=== PATIENT | female | born 1995 | race Caucasian/White ===

== ENCOUNTER 2020-03-07 18:54 | Emergency (ER) | payer OTHER, SELFPAY ==
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
[2020-03-07 19:05] VITALS: BP 136/83; PULSE 99; RESP 17; TEMP 36.5; O2SAT 100
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
[2020-03-07 21:26] VITALS: BP 140/93; PULSE 77; RESP 18; O2SAT 99
== END 2020-03-07 21:28 | disposition home or self-care (01) ==
PROVIDERS: Emergency Provider Emergency Medicine; PCP Family Medicine
DX: S16.1XXA Strain of muscle, fascia and tendon at neck level, initial encounter (principal); V43.52XA Car driver injured in collision with other type car in traffic accident, initial encounter
CPT/HCPCS: 72050; 99283

== ENCOUNTER 2020-12-26 15:53 | Emergency (ER) | payer OTHER, SELFPAY ==
[2020-12-26 15:58] VITALS: BP 133/89; PULSE 86; RESP 20; TEMP 36.4; O2SAT 99
--- NOTE | 2020-12-26 16:10 | ED.URI ---
HPI - URI/Sore Throat General Chief Complaint: Upper Respiratory Infection Stated Complaint: sinus issues Time Seen by Provider: 12/26/20 16:00 Source: patient and RN notes reviewed History of Present Illness HPI Narrative: Patient is a 25-year-old female who presents the urgent care with complaints of congestion, pressure behind the eyes, intermittent headaches, and drainage. Patient denies of any sore throat or fever. States that her son was diagnosed with possible RSV but was not swabbed in the office. He was negative for Covid at that time. States that her symptoms of been ongoing for approximately a week and a half and her has also had some intermittent symptoms which is since improved. Patient states that she is 21 weeks . States that she has been taking Benadryl, Tylenol and Zyrtec. Patient states she does suffer from seasonal allergies. Denies of any known contact with Covid. States that she has had the Materna vaccine. No other acute complaints. No acute distress noted. Patient aware of the plan of care. Some parts of this dictation were generated by voice recognition software and may contain typographical and/or grammatical inaccuracies. Related Data Home Medications Medication Instructions Recorded Confirmed No Home Medications 03/07/20 03/07/20 Allergies Allergy/AdvReac Type Severity Reaction Status Date / Time No Known Allergies Allergy Verified 03/07/20 19:08 Review of Systems Review of Systems: CONSTITUTIONAL: Denies fever, chills, or sweats. EYES: Denies visual changes, redness, or discharge. ENT: Reports of sinus pressure, congestion, postnasal drainage CARDIOVASCULAR: Denies chest pain, palpitations, or edema. RESPIRATORY: Reports a mild cough without dyspnea GASTROINTESTINAL: Denies abdominal pain, nausea, vomiting, or diarrhea. GENITOURINARY: Denies dysuria or hematuria. SKIN: Denies rash or itching. MUSCULOSKELETAL: Denies back pain, joint pain, or myalgia. NEUROLOGIC: Denies headache, numbness, or weakness. All other systems reviewed are negative, except as documented in HPI. PMFSH Social History Social History Gender identity (if verbalized by the patient): Female Comments At the time of my signature, I reviewed and agree with the nursing past medical, surgical, social, and family history. There is no relevant family history pertinent to the patient complaint. Exam Narrative: GENERAL: This is a well-nourished, well-developed patient, in no apparent distress. HEAD: normocephalic, atraumatic. Mild frontal sinus tenderness EYES: PERRL. Sclera clear/white. Vision is grossly intact. EARS: External ears normal, auditory canals clear and without drainage, TMs normal without perforation. Hearing grossly intact. NOSE: External nose normal with no obvious nasal discharge, nares without redness, clear rhinorrhea. THROAT: Mucous membranes moist, posterior pharynx clear. Mild postnasal drainage NECK: Neck supple, non-tender without lymphadenopathy CARDIOVASCULAR: Regular rate and rhythm without murmurs, gallops, or rubs. RESPIRATORY: Clear to auscultation. Breath sounds equal bilaterally. No wheezes, rales, or rhonchi. SKIN: warm, intact with no suspicious lesions or rash, good texture and turgor. NEURO: awake, alert, and oriented to person, place and time. There were no obvious focal neurologic abnormalities. EXTREMITIES: No clubbing, cyanosis, or edema. Course Vital Signs Vital signs: Vital Signs Temperature 97.5 F L 12/26/20 15:58 Pulse Rate 86 12/26/20 15:58 Respiratory Rate 20 12/26/20 15:58 Blood Pressure 133/89 12/26/20 15:58 Pulse Oximetry 99 12/26/20 15:58 Temperature 97.5 F L 12/26/20 15:58 Pulse Rate 86 12/26/20 15:58 Respiratory Rate 20 12/26/20 15:58 Blood Pressure 133/89 12/26/20 15:58 Pulse Oximetry 99 12/26/20 15:58 Reviewed MDM - URI/Sore Throat MDM Narrative Medical decision making narrative: Reviewed lab resul
== END 2020-12-26 16:25 | disposition home or self-care (01) ==
PROVIDERS: Emergency Provider Nurse Practitioner Family
DX: J32.9 Chronic sinusitis, unspecified (principal); Z20.822 Contact with and (suspected) exposure to COVID-19
CPT/HCPCS: 87426; 99212; C9803; G0463

== ENCOUNTER 2021-03-13 15:53 | Emergency (ER) | payer OTHER, SELFPAY ==
--- NOTE | ~2021-03-13 | XR_ITS ---
EXAMINATION: XR foot LT min 3V EXAM DATE: 03/13/2021 16:50 INDICATION: PAIN prox 5th metatarsal Lt foot after excessive walking includes; no injury, onset x 2 d ays. . TECHNIQUE: Left foot dorsoplantar, lateral and oblique projections obtained and reviewed. There is n o prior study for comparison. FINDINGS: Left metatarsal bones unremarkable. No periosteal reaction or band of sclerosis to sugges t subacute stress fracture. Follow-up can be obtained if symptoms persist. There are no acute fractures or dislocations identified. There is no subcutaneous gas. The soft tis paul is unremarkable. There are no radiopaque foreign bodies. IMPRESSION: Unremarkable left foot x-ray. Reviewed, dictated and finalized at location A. UNTING ASSISTANT
[2021-03-13 16:04] VITALS: BP 116/72; PULSE 77; RESP 16; TEMP 36.4; O2SAT 100
--- NOTE | 2021-03-13 16:31 | ED.LOWEXIN ---
HPI - Extremity Injury (Lower) General Chief Complaint: Extremity Injury, Lower Stated Complaint: L ANKLE/FOOT PAIN Time Seen by Provider: 03/13/21 16:31 Source: patient, RN notes reviewed and old records reviewed Mode of arrival: ambulatory Limitations: no limitations History of Present Illness HPI Narrative: 26-year-old female presents to the [facility] with left lateral foot pain for the last 2 days. Patient states that she is taken Tylenol, 1 dose. Pain is worse with walking. [place] was wearing a pair of boots not supportive shoes Currently 32 weeks , sees heart rate in [facility], call today and they recommended she come to [facility] and get an x-ray of her foot Related Data Home Medications Medication Instructions Recorded Confirmed No Home Medications 03/07/20 03/07/20 Allergies Allergy/AdvReac Type Severity Reaction Status Date / Time No Known Allergies Allergy Verified 03/07/20 19:08 Review of Systems Review of Systems: All systems reviewed & are unremarkable except as noted in HPI and below Constitutional: Constitutional: Reports no additional constitutional complaints, Denies chills and Denies fever(s) Eyes: Eyes: Reports no additional eye complaints ENT: Reports system reviewed and no additional complaints, except as documented Cardiovascular: Cardiovascular: Reports no additional cardiovascular complaints Respiratory: Respiratory: Reports no additional respiratory complaints Musculoskeletal: Musculoskeletal: Reports as per HPI Comments: Left lateral foot pain Integumentary/Breasts: Skin/Breast: Reports system reviewed and no additional complaints, except as docu Neurologic: Reports system reviewed and no additional complaints, except as documented Psychiatric: Psychiatric: Reports no additional psychiatric complaints Allergic/Immunologic: Allergic/Immunologic: Reports no additional allergic/immunologic complaints [facility] Past Medical History Medical History (Updated 03/13/21 @ 19:46 by Salome Gann) No significant medical problems Surgical History Surgical History (Updated 03/13/21 @ 19:46 by Salome Gann) No significant past surgical history Social History Social History (Updated 03/13/21 @ 19:46 by Salome Gann) Living arrangements: with family Gender identity (if verbalized by the patient): Female Comments At the time of my signature, I reviewed and agree with the nursing past medical, surgical, social, and family history. There is no relevant family history pertinent to the patient complaint. Exam Const: General: healthy appearing, no acute distress and alert Nutritional Appearance: well nourished Orientation/consciousness: patient oriented x3 Limitations: no limitations HENMT: Head: normal to inspection Eyes: Pupils: Equal, round and reactive pupils present Neck: Neck: normal visual inspection, no lymphadenopathy and no meningeal signs Chest: Chest palpation & inspection: normal inspection of the chest Resp: Effort & Inspection: normal respiratory effort Cardio: Rate: regular rate Back/Spine/Pelvis: Back: no CVA tenderness Skin: General skin exam: normal color Rashes: no rashes Wounds: no wounds Neuro: General: patient oriented x3, moves all extremities, no meningeal signs and no focal motor deficits Speech: normal speech Extrem: General: full ROM and capillary refill normal Ankle/foot/toe images: 1. Reports pain when bearing weight. Unable to reproduce on palpation. No signs of infection. No redness, swelling or bruising noted. Psych: Appearance: grossly normal and well kempt Mental Status: mental status grossly normal Affect: normal affect Attitude: cooperative Thought content: Yes Normal thought content present Course Course Emergency Course: Discharge instructions reviewed with patient, as well as provided in writing per nursing staff. The instructions also include spec
== END 2021-03-13 17:11 | disposition home or self-care (01) ==
PROVIDERS: Emergency Provider Nurse Practitioner; PCP Nurse Practitioner Obstetrics & Gynecology
DX: M79.672 Pain in left foot (principal)
CPT/HCPCS: 73630; 99213; G0463

== ENCOUNTER 2022-03-26 09:34 | Emergency (ER) | payer OTHER, SELFPAY ==
--- NOTE | ~2022-03-26 | XR_ITS ---
EXAMINATION: XR chest 2V DATE: 03/26/2022 10:20 INDICATION: Shortness of breath. TECHNIQUE: Frontal and lateral views of the chest were obtained. COMPARISON: None. FINDINGS: There is no pneumonia, pleural effusion, or pneumothorax. The heart size is normal. There a re prominent paracardial fat pads. IMPRESSION: 1. No acute cardiopulmonary disease. Reviewed, dictated and finalized at location A. ER AIDE
--- NOTE | 2022-03-26 09:39 | ECG_ITS ---
Measurements Intervals [place] Rate: 94 P: 46 SD: 128 QRS: 43 QRSD: 92 T: 3 QT: 341 QTc: 428 Interpretive Statements SINUS RHYTHM NONSPECIFIC T-WAVE ABNORMALITY NO PREVIOUS ECG AVAILABLE FOR COMPARISON Electronically Signed On 03-26-2022 16:33:04 COMMUNITY ACTION WORKER by Keshav Li M.D.
[2022-03-26 09:46] VITALS: BP 120/73; PULSE 121; RESP 18; TEMP 36.6; O2SAT 98
[2022-03-26 10:12] LABS: Basophils Absolute Auto 0.1 K/mm3 (0.0-0.1); Basophils Percent Auto 0.5 % (0.2-1.2); Eosinophils Absolute Auto 0.3 K/mm3 (0-0.3); Eosinophils Percent Auto 2.2 % (0-4.4); Hematocrit 37.3 % (37.0-47.0); Hemoglobin 11.9 g/dL (12.0-15.0); Immature Granulocyte Percent A 0.7 % (0-0.5); Lymphocytes Absolute Auto 3.94 K/mm3 (0.9-3.2); Lymphocytes Percent Auto 29.2 % (18.3-44.2); Mean Corpuscular HGB Conc 31.9 g/dl (32-36); Mean Corpuscular Hemoglobin 25.8 pg (26-34); Mean Corpuscular Volume 80.7 fl (80-100); Mean Platelet Volume 9.3 fl (7.4-10.4); Monocytes Percent Auto 7.5 % (2.6-8.5); Neutrophils Absolute Auto 8.1 K/mm3 (1.3-6.7); Neutrophils Percent Auto 59.9 % (45.5-73.1); Platelet Count Result 297 k/mm3 (150-375); Red Blood Count 4.62 M/mm3 (4.2-5.4); White Blood Count 13.5 K/mm3 (4.5-10.0)
[2022-03-26 10:24] LABS: Alanine Aminotransferase 34 U/L (6-35); Albumin Level 4.3 g/dL (3.5-5.1); Alkaline Phosphatase 139 U/L (38-126); Anion Gap 9 mmol/L (8-16); Aspartate Amino Transferase 30 U/L (14-36); Bilirubin,Total 0.2 mg/dL (0.2-1.3); Blood Urea Nitrogen 11 mg/dL (7-17); Calcium 8.8 mg/dL (8.4-10.2); Carbon Dioxide 26 mmol/L (22-30); Chloride 103 mmol/L (98-107); Estimated Glomerular Filt Rate > 60; Glucose 92 mg/dL (65-110); Potassium 3.6 mmol/L (3.4-5.0); Sodium 138 mmol/L (137-145)
[2022-03-26 10:46] LABS: Influenza A QL RT-PCR Negative (Negative); Influenza B QL RT-PCR Negative (Negative); RSV RNA, RT-PCR Negative (Negative); SARS-CoV-2 RNA PCR Negative
[2022-03-26] MEDS: SODIUM CHLORIDE 0.9% IV 1,000 ML 999 ML IV CONT (11:35)
--- NOTE | 2022-03-26 11:36 | ED.SOB ---
HPI - SOB/Dyspnea General Chief Complaint: Shortness of Breath/Dyspnea Stated Complaint: sob Time Seen by Provider: 03/26/22 11:07 Source: patient Mode of arrival: ambulatory Limitations: no limitations History of Present Illness HPI Narrative: This is a 27-year-old female that presents to the emergency department for cold symptoms ongoing over the last week. Reports cough, congestion, sore throat. Reports she had an online doctor's visit and was put on a steroid for possible fluid in her ears. Reports she was feeling better. Today she felt a little bit short of breath which prompted her to be seen in the urgent care. They sent her to the ER to rule out a PE due to exogenous estrogen use. Denies fever, chest pain, or lower extremity edema. Related Data Home Medications Medication Instructions Recorded Confirmed No Home Medications 03/07/20 03/07/20 Allergies Allergy/AdvReac Type Severity Reaction Status Date / Time No Known Allergies Allergy Verified 03/07/20 19:08 Review of Systems Review of Systems: CONSTITUTIONAL: Denies fever EYES: Denies redness, or discharge. ENT: Reports congestion, sore throat, and otalgia. CARDIOVASCULAR: Denies chest pain, or edema. RESPIRATORY: Reports cough and dyspnea. All systems reviewed & are unremarkable except as noted in HPI and below PMFSH Past Medical History Medical History (Updated 03/26/22 @ 12:44 by Olivia Parmar PA-C) No significant medical problems Surgical History Surgical History (Updated 03/13/21 @ 19:46 by Salome Gann APRN) No significant past surgical history Social History Social History (Updated 03/26/22 @ 11:38 by Olivia Parmar PA-C) Smoking status: Never smoker Gender identity (if verbalized by the patient): Female Exam Narrative: GENERAL: Well-appearing, well-nourished, and in no acute distress. HEAD: Normocephalic, atraumatic. EYES: EOMI. ENT: Nares clear, no rhinorrhea or epistaxis. Mucous membranes moist. Oropharynx without tonsillar hypertrophy exudate or other lesions. Bilateral TMs pearly terry non-bulging NECK: Supple. No adenopathy or masses. CHEST: Clear to auscultation. No respiratory distress. No wheezes rales or rhonchi HEART: Regular rate and rhythm. No murmur heard. Normal peripheral pulses. EXTREMITIES: Normal range of motion. No edema. SKIN: Warm, dry, no rash. NEURO: No focal deficits. Alert and oriented x3. PSYCH: Normal mood and affect Course Vital Signs Vital signs: Vital Signs Temperature 98 F 03/26/22 09:46 Pulse Rate 121 H 03/26/22 09:46 Respiratory Rate 18 03/26/22 09:46 Blood Pressure 120/73 03/26/22 09:46 Pulse Oximetry 98 03/26/22 09:46 Oxygen Delivery Room Air 03/26/22 09:46 Temperature 98 F 03/26/22 09:46 Pulse Rate 121 H 03/26/22 09:46 Respiratory Rate 18 03/26/22 09:46 Blood Pressure 120/73 03/26/22 09:46 Pulse Oximetry 98 03/26/22 09:46 Oxygen Delivery Room Air 03/26/22 09:46 MDM - SOB/Dyspnea MDM Narrative Medical decision making narrative: Patient presents the emergency department for cold symptoms ongoing over the last week. Was initially evaluated at urgent care and sent in to rule out PE due to being on control. She is afebrile and nontoxic-appearing. Tachycardic upon arrival, this normalized with IV fluid administration. CBC does show leukocytosis to 13.5, likely due to recent steroid use. Patient is also a little mildly anemic with hemoglobin of 11.9. Metabolic panel without concerning findings. Influenza, RSV, COVID screens are negative. Chest x-ray without acute cardiopulmonary normality. EKG without concerning changes and baseline troponin is negative. Her D-dimer is not elevated. Patient was updated on case findings. She was instructed on continued care of viral infection. She is to follow-up with primary care provider. She was given warnings to return to the ER Lab Data Attestation: I reviewed the patient's lab
[2022-03-26 11:38] LABS: Troponin I < 0.012 ng/mL (0.000-0.034)
[2022-03-26 12:24] LABS: Prothrombin Time 12.8 Seconds (11.1-14.7)
[2022-03-26 12:30] LABS: D Dimer 0.45 ug/mL (<0.48)
[2022-03-26 13:10] VITALS: BP 126/90; PULSE 80; RESP 18
== END 2022-03-26 13:10 | disposition home or self-care (01) ==
PROVIDERS: Emergency Medicine; Emergency Provider Physician Assistant
DX: J06.9 Acute upper respiratory infection, unspecified (principal); Z20.822 Contact with and (suspected) exposure to COVID-19
CPT/HCPCS: 36415; 71046; 80053; 84484; 85025; 85380; 85610; 85730; 87637; 93005; 99284; J7030

== ENCOUNTER 2022-04-20 17:43 | Emergency (ER) | payer OTHER, SELFPAY ==
--- NOTE | 2022-04-20 17:49 | ED.URI ---
HPI - URI/Sore Throat General Chief Complaint: Upper Respiratory Infection Stated Complaint: SORE THROAT Time Seen by Provider: 04/20/22 17:50 Source: patient and RN notes reviewed Mode of arrival: ambulatory Limitations: no limitations History of Present Illness HPI Narrative: 27-year-old female presents with concern for sore throat, painful swallowing, feeling like something is stuck throat. She denies nasal congestion, rhinorrhea, fever. Reports chills and malaise. MD elicited complaint: sore throat Related Data Home Medications Medication Instructions Recorded Confirmed escitalopram oxalate 20 mg tablet 20 mg PO DAILY 04/01/22 04/20/22 Allergies Allergy/AdvReac Type Severity Reaction Status Date / Time No Known Allergies Allergy Verified 04/20/22 17:50 Review of Systems Review of Systems: CONSTITUTIONAL: Reports malaise, chills. Denies sweats, or fever. EYES: Denies visual changes, redness, or discharge. ENT: Denies rhinorrhea, congestion, sinus pain, otalgia. Reports sore throat. CARDIOVASCULAR: Denies chest pain, palpitations, or edema. RESPIRATORY: Denies cough. Denies dyspnea. GASTROINTESTINAL: Denies abdominal pain, nausea, vomiting, diarrhea SKIN: Denies rash or itching. MUSCULOSKELETAL: Denies myalgia. NEUROLOGIC: Denies headache. All systems reviewed & are unremarkable except as noted in HPI and below PMFSH Past Medical History Medical History (Updated 04/20/22 @ 18:05 by Salome Restrepo NP) No significant medical problems Surgical History Surgical History (Updated 03/13/21 @ 19:46 by Salome Gann APRN) No significant past surgical history Social History Social History (Updated 04/01/22 @ 08:27 by Aruy Francis MA) Smoking status: Never smoker Lack of Transportation: No Lack of Food: Never True Current Housing: I Have Housing Concerned About Future Housing: No Difficulty Paying Gas/Electric Bills: No Difficulty Paying for Meds: No Currently Unemployed: No Education: Master's Degree or Higher Difficulty w/ Childcare or Family Care: No Gender identity (if verbalized by the patient): Female Comments At time of signature, agree with nursing past medical, surgical, social and family history. There is no relevant family history pertinent to the presenting complaint Exam Narrative: GENERAL: Well-appearing, well-nourished, and in no acute distress. HEAD: Normocephalic EYES: PERRLA, conjunctivae clear ENT: Nares clear. Mucous membranes moist. TM pearly terry with dull light reflex bilaterally; no tragal tenderness. Oropharynx erythematous without lesions. Right-sided Tonsil enlarged with exudate, no drooling, no hoarseness, no trismus, uvula midline. NECK: Supple. No lymphadenopathy CHEST: Clear to auscultation, breath sounds equal. No wheezing, rhonchi, rales, or stridor. No respiratory distress, speaks in full sentences. HEART: Regular rate and rhythm. No murmur heard. SKIN: Warm, dry, no rash. NEURO: Alert and oriented x3. PSYCH: Normal mood and affect Course Course Emergency Course: Discussed inability to do rapid strep test due to lack of testing supplies, offered throat culture versus treating for tonsillitis, patient would prefer not to swab for throat culture. Patient is aware of diagnosis, understands and agrees to treatment plan. Anticipatory guidance given. Patient agrees to follow-up as directed and is aware of reasons to seek care at the emergency department. Portions of this record may have been created with voice recognition software Level of Care: Express Care Visit Vital Signs Vital signs: Reviewed. MDM - URI/Sore Throat MDM Narrative Medical decision making narrative: Differential diagnosis considered: Haas virus, strep pharyngitis, allergic rhinitis, upper respiratory tract infection, sinusitis, rhinosinusitis, nasopharyngitis. viral pharyngitis, otitis media, otitis externa, pneumonia, bronchitis, viral cough syndrome, viral sy
[2022-04-20 17:51] VITALS: BP 121/77; PULSE 103; RESP 16; TEMP 37; O2SAT 100
[2022-04-20 18:02] VITALS: BP 121/77; PULSE 103; RESP 16; TEMP 37; O2SAT 100
== END 2022-04-20 18:07 | disposition home or self-care (01) ==
PROVIDERS: Emergency Provider Nurse Practitioner; PCP Emergency Medicine
DX: J03.90 Acute tonsillitis, unspecified (principal)
CPT/HCPCS: 99213; G0463

== ENCOUNTER 2022-05-13 09:32 | Outpatient (CLI) | payer OTHER, SELFPAY ==
[2022-05-13 19:02] LABS: LDL Cholesterol Direct 95 mg/dL
[2022-05-13 19:40] LABS: Cholesterol 197 mg/dL (0-200); HDL Direct 47 mg/dL; Triglycerides 104 mg/dL (<150)
[2022-05-13 19:58] LABS: Hemoglobin A1C 4.8 % (<5.7)
== END 2022-05-13 09:33 | disposition home or self-care (01) ==
LOC: ANHGOSHLAB 09:34
PROVIDERS: PCP Emergency Medicine; Visit Provider Emergency Medicine
DX: E66.9 Obesity, unspecified (principal)
CPT/HCPCS: 36415; 80061; 83036; 84443

== ENCOUNTER 2023-01-04 12:19 | Outpatient (CLI) | payer OTHER, SELFPAY ==
--- NOTE | ~2023-01-04 | MR_ITS ---
EXAMINATION: MR brain/brain stem wo/w con DATE: 01/04/2023 13:00 INDICATION: R20.2 - Paresthesia of skin TECHNIQUE: Magnetic resonance imaging (MRI) of the brain and brainstem was performed without and with 20 mL MultiHance intravenous contrast. Sequences included sagittal and axial T1-weighted SE, axial d iffusion-weighted FS EPI ASSET, axial T2*-weighted GRE, axial T2-weighted FLAIR Propeller, and axial T2-weighted Propeller. Postcontrast axial and coronal T1-weighted SE was obtained. Apparent diffusion coefficient (ADC) maps were created. COMPARISON: None. FINDINGS: No abnormal restricted diffusion to suggest acute ischemic infarct. No MRI evidence of hemorrhage or extra-axial collection. No suspicious foci of susceptibility to suggest prior intraparenchymal hemorr ayaz. Normal white matter signal. No evidence of advanced or lobar predominant parenchymal volume los s. The basilar cisterns are patent. Flow voids are preserved. Paranasal sinuses are within normal lerner its. Globes and orbital contents are within normal limits. IMPRESSION: Normal MR brain findings. Reviewed, dictated and finalized at location K. IMPRESSION: Normal MR brain findings.
[2023-01-04 13:25] LABS: Basophils Absolute Auto 0.1 K/mm3 (0.0-0.1); Basophils Percent Auto 0.6 % (0.2-1.2); Eosinophils Absolute Auto 0.1 K/mm3 (0-0.3); Eosinophils Percent Auto 0.5 % (0-4.4); Hematocrit 37.7 % (37.0-47.0); Hemoglobin 11.9 g/dL (12.0-15.0); Immature Granulocyte Absolute 0.05 K/mm3 (0.00-0.031); Immature Granulocyte Percent A 0.5 % (0-0.5); Lymphocytes Absolute Auto 2.94 K/mm3 (0.9-3.2); Lymphocytes Percent Auto 29.3 % (18.3-44.2); Mean Corpuscular HGB Conc 31.6 g/dl (32-36); Mean Corpuscular Hemoglobin 26.6 pg (26-34); Mean Corpuscular Volume 84.2 fl (80-100); Mean Platelet Volume 9.2 fl (7.4-10.4); Monocytes Absolute Auto 0.6 K/mm3 (0.1-0.6); Monocytes Percent Auto 5.5 % (2.6-8.5); Neutrophils Absolute Auto 6.4 K/mm3 (1.3-6.7); Neutrophils Percent Auto 63.6 % (45.5-73.1); Platelet Count Result 250 k/mm3 (150-375); Red Blood Count 4.48 M/mm3 (4.2-5.4); Red Cell Distribution Width 12.8 % (11.5-14.5); White Blood Count 10.1 K/mm3 (4.5-10.0)
[2023-01-04 13:40] LABS: Alanine Aminotransferase 21 U/L (6-35); Albumin Level 3.7 g/dL (3.5-5.1); Alkaline Phosphatase 86 U/L (38-126); Anion Gap 7 mmol/L (8-16); Aspartate Amino Transferase 22 U/L (14-36); Bilirubin,Total 0.5 mg/dL (0.2-1.3); Blood Urea Nitrogen 10 mg/dL (7-17); Calcium 8.7 mg/dL (8.4-10.2); Carbon Dioxide 27 mmol/L (22-30); Chloride 102 mmol/L (98-107); Estimated Glomerular Filt Rate > 60; Glucose 89 mg/dL (65-110); Sodium 136 mmol/L (137-145)
== END 2023-01-04 12:20 | disposition home or self-care (01) ==
PROVIDERS: PCP Emergency Medicine; Visit Provider Emergency Medicine
DX: R20.2 Paresthesia of skin (principal)
CPT/HCPCS: 36415; 70553; 80053; 85025; A9577

== ENCOUNTER 2024-03-17 09:17 | Outpatient (CLI) | payer OTHER, SELFPAY ==
[2024-03-17 12:44] LABS: Basophils Absolute Auto 0.1 K/mm3 (0.0-0.1); Basophils Percent Auto 0.6 % (0.2-1.2); Eosinophils Absolute Auto 0.1 K/mm3 (0-0.3); Eosinophils Percent Auto 1.4 % (0-4.4); Hematocrit 41.2 % (37.0-47.0); Hemoglobin 12.9 g/dL (12.0-15.0); Immature Granulocyte Absolute 0.03 K/mm3 (0.00-0.031); Immature Granulocyte Percent A 0.3 % (0-0.5); Lymphocytes Absolute Auto 1.98 K/mm3 (0.9-3.2); Lymphocytes Percent Auto 22.3 % (18.3-44.2); Mean Corpuscular HGB Conc 31.3 g/dl (32-36); Mean Corpuscular Hemoglobin 26.5 pg (26-34); Mean Corpuscular Volume 84.6 fl (80-100); Mean Platelet Volume 9.9 fl (7.4-10.4); Monocytes Absolute Auto 0.5 K/mm3 (0.1-0.6); Monocytes Percent Auto 5.4 % (2.6-8.5); Neutrophils Absolute Auto 6.2 K/mm3 (1.3-6.7); Platelet Count Result 321 k/mm3 (150-375); Red Blood Count 4.87 M/mm3 (4.2-5.4); Red Cell Distribution Width 13.4 % (11.5-14.5); White Blood Count 8.9 K/mm3 (4.5-10.0)
[2024-03-17 12:56] LABS: Alanine Aminotransferase 33 U/L (6-35); Albumin Level 4.5 g/dL (3.5-5.1); Alkaline Phosphatase 119 U/L (38-126); Anion Gap 7 mmol/L (4-12); Aspartate Amino Transferase 47 U/L (14-36); Bilirubin,Total 0.6 mg/dL (0.2-1.3); Blood Urea Nitrogen 14 mg/dL (7-17); Calcium 9.1 mg/dL (8.4-10.2); Carbon Dioxide 26 mmol/L (22-30); Chloride 105 mmol/L (98-107); Estimated Glomerular Filt Rate > 60; Glucose 73 mg/dL (65-110); Potassium 4.4 mmol/L (3.4-5.0); Sodium 138 mmol/L (137-145)
== END 2024-03-17 09:18 | disposition home or self-care (01) ==
LOC: ANHGOSHLAB 09:18
PROVIDERS: PCP Internal Medicine; Visit Provider Family Medicine
DX: Z01.818 Encounter for other preprocedural examination (principal)
CPT/HCPCS: 36415; 80053; 85025

== ENCOUNTER 2024-06-10 15:23 | Outpatient (CLI) | payer OTHER, SELFPAY | END 2024-06-10 15:24 | disposition home or self-care (01) | PROVIDERS: PCP Nurse Practitioner; Visit Provider Nurse Practitioner | DX: N20.0 Calculus of kidney (principal) | CPT/HCPCS: 74176 ==